=== PATIENT | male | born 1975 | race Caucasian/White ===

== ENCOUNTER 2016-09-05 15:12 | Inpatient (IN) ==
[2016-09-07 05:40] LABS: Basophils # 0.1 K/mcL (0.0-0.2); Basophils % 0.9 %; Eosinophils # 0.5 K/mcL (0.0-0.6); Hematocrit 43.1 % (37.5-50.1); Hemoglobin 15.3 g/dL (12.9-16.9); Immature Granulocytes % 0.3 % (0-4); Lymphocytes # 2.7 K/mcL (0.6-4.6); Lymphocytes % 21.5 %; Mean Corpuscular HGB Conc 35.5 g/dL (31.6-35.5); Mean Corpuscular Hemoglobin 31.1 pg (28.0-33.3); Mean Corpuscular Volume 87.6 fL (83.0-100.0); Mean Platelet Volume 10.1 fL (9.4-12.4); Monocytes # 0.8 K/mcL (0.0-1.3); Monocytes % 6.6 %; Neutrophils # 8.3 K/mcL (1.6-8.9); Platelet Count 276 K/mcL (140-400); Red Blood Count 4.92 M/mcL (4.19-5.50); Red Cell Distribution Width 13.1 % (11.5-14.5); Segmented Neutrophils % 66.7 %
[2016-09-07 05:44] LABS: Prothrombin Time 11.1 Seconds (9.4-12.1)
[2016-09-07 05:47] LABS: Activated Partial Thrombo Time 27.3 Seconds (26.0-36.0)
[2016-09-07 05:52] LABS: BUN/Creatinine Ratio 8 (6-26); Blood Urea Nitrogen 8 mg/dL (8-26); Calcium 9.5 mg/dL (8.6-10.8); Carbon Dioxide 28 mEq/L (19-29); Chloride 102 mEq/L (98-109); Glucose 103 mg/dL (70-99); Osmolality,Calculated 287 (280-300); Sodium 139 mEq/L (136-145); eGFR For African Americans > 60 (> 60); eGFR For Non-African Americans > 60 (> 60)
[2016-09-07] MEDS: Aspirin Enteric Coated 81 MG Tablet PO SCH (09:08)
--- NOTE | 2016-09-07 14:13 | Internal Med History&Physical ---
Date of Encounter: 09/07/16 Time of Encounter: 14:10 Assessment and Plan (1) Ataxia Current visit: No Status: Acute Patient had a CVA which increases ataxia. (2) Abnormal head CT Current visit: No Status: Acute Above patient had a low density areas of change in the posterior fossa (3) History of brain cancer Current visit: No Status: Acute Was 10 years old who had a tumor was removed via craniotomy (4) Cerebellar stroke Current visit: No Status: Acute Patient had changes in the CT in the posterior fossa Internal Medicine - H&P: HPI Chief complaint: CVA Admitted From: Hospital to Hospital Transfer Plans for Post Hospital Care: Home History of present illness: Mr. España is a 41 year old male Past Med Surg Social Fam HX - Past Medical History Medical history: cancer Psychiatric history: no psych history - Past Surgical History Surgical History: arthroscopy - Social History Smoking Status: Never smoker Smokeless Tobacco Status: No Alcohol use: none Drug use: none Occupational status: disabled - Family History Mother Living Status: Still Living Hx Family Cancer: Yes (skin) Internal Medicine - H&P: Meds Aspirin [Lo-Dose Aspirin EC] 81 mg PO DAILY 09/06/16 [History] Atorvastatin Calcium [Lipitor] 20 mg PO HS 09/06/16 [History] Allergies No Known Allergies Allergy (Verified 05/30/15 22:27) All Systems PM: A 10-system review of systems was performed and is negative for pertinent findings except as documented above in the HPI. - Constitutional Vitals: Temp Pulse Resp BP Pulse Ox 98.2 F 73 16 101/63 95 09/07/16 11:44 09/07/16 12:56 09/07/16 12:56 09/07/16 12:56 09/07/16 12:56 - Head Head exam: Present: atraumatic, normocephalic - Neck Neck exam general surgery: Present: supple, trachea midline. Absent: lymphadenopathy - Respiratory Respiratory exam: Present: CTAB. Absent: accessory muscle use, rales, rhonchi, wheezes - Cardiovascular Cardiovascular exam: Present: RRR, +S1, +S2. Absent: diastolic murmur, gallop, rubs, systolic murmur Internal Med - H&P Results - Labs CBC & Chem 7: 09/07/16 05:25 09/07/16 05:25 Labs: Short CBC 07/26/17 Range/Units 05:25 WBC 12.4 H (4.3-11.1) K/mcL Hgb 15.3 (12.9-16.9) g/dL Hct 43.1 (37.5-50.1) % Plt Count 276 (140-400) K/mcL Neutrophils # 8.3 (1.6-8.9) K/mcL BMP 09/07/16 05:25 Sodium 139 Potassium 4.0 Chloride 102 Carbon Dioxide 28 BUN 8 Creatinine 1.03 Glucose 103 H Calcium 9.5 Lab is stable
--- NOTE | 2016-09-07 16:03 | Physcial Medicine-Consult Note ---
Date of Encounter: 09/07/16 Time of Encounter: 16:00 Physical Medicine - AP (1) Cerebellar stroke Status: Acute Assessment and plan: 1. Mr. España will continue with intensive PT/OT/TR to address his continued ataxic gait, transfers, safety and ADLs. MAGALIE 09/14/16. Plan for patient to return home with supervision. Code(s): I63.9 - Cerebral infarction, unspecified SNOMED Code(s): [id number] Physical Medicine - HPI - Data of Consult Consult date: 09/07/16 Requesting Physician: Richie Sibley DO Primary Care Provider: PCP NO - Consult Narrative Reason for consult: CVA History of present illness: Mr. 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 Patient presented to an OSH with complaints of weakness in his legs. Patient was found to have sustained left cerebellar and right midbrain stroke. Patient was transferred to [facility]. He was stabilized and transferred for inpatient rehabilitation. CC: Richie Sibley DO Past Med Surg Social Fam HX - Past Medical History Medical history: cancer Psychiatric history: no psych history - Past Surgical History Surgical History: arthroscopy - Social History Smoking Status: Never smoker Smokeless Tobacco Status: No Alcohol use: none Drug use: none - Family History Mother Living Status: Still Living Hx Family Cancer: Yes (skin) Medications and Allergies Aspirin [Lo-Dose Aspirin EC] 81 mg PO DAILY 09/06/16 [History] Atorvastatin Calcium [Lipitor] 20 mg PO HS 09/06/16 [History] Allergies No Known Allergies Allergy (Verified 05/30/15 22:27) - Constitutional Constitutional: Absent: anorexia, chills - Cardiovascular Cardiovascular: Present: diaphoresis. Absent: chest pain - Respiratory Respiratory: Absent: dyspnea - Gastrointestinal Gastrointestinal: Absent: abdominal pain, change in bowel habits, constipation - Musculoskeletal Musculoskeletal: Present: abnormal gait - Neurological Neurological: Present: disequilibrium. Absent: dizziness Physical Medicine - Exam - Constitutional Vitals: Temp Pulse Resp BP Pulse Ox 98.2 F 73 16 101/63 95 09/07/16 11:44 09/07/16 12:56 09/07/16 12:56 09/07/16 12:56 09/07/16 12:56 - Head Head exam: Present: atraumatic, normal inspection Additional comments: Cranial nerves II-XII intact. No facial droop. - Respiratory Respiratory exam: Present: CTAB - Cardiovascular Cardiovascular exam: Present: RRR - GI/Abdominal GI/Abdominal exam: Present: normal bowel sounds, soft. Absent: tenderness - Extremities Exam Extremities exam: Present: normal inspection. Absent: calf tenderness Additional comments: Motor strength is 5/5 in the bilateral upper and lower limbs. Physical Medicine - Results - Labs CBC & Chem 7: 09/07/16 05:25 09/07/16 05:25 Labs: Short CBC 09/07/16 Range/Units 05:25 WBC 12.4 H (4.3-11.1) K/mcL Hgb 15.3 (12.9-16.9) g/dL Hct 43.1 (37.5-50.1) % Plt Count 276 (140-400) K/mcL Neutrophils # 8.3 (1.6-8.9) K/mcL BMP 09/07/16 05:25 Sodium 139 Potassium 4.0 Chloride 102 Carbon Dioxide 28 BUN 8 Creatinine 1.03 Glucose 103 H Calcium 9.5 Consult Discharge Plan - Plan Referrals: NO,PCP [Primary Care Provider] -
[2016-09-08] MEDS: Aspirin Enteric Coated 81 MG Tablet PO SCH (08:33)
--- NOTE | 2016-09-08 15:32 | Internal Med Progress Note ---
Date of Encounter: 09/08/16 Time of Encounter: 15:30 - Assessment and plan (1) Ataxia Current Visit: No Status: Acute Assessment and plan: He is working on the ataxia that which the stroke is affected his gait (2) Abnormal head CT Current Visit: No Status: Acute Assessment and plan: See the CT (3) History of brain cancer Current Visit: No Status: Acute Assessment and plan: I history to young age. And apparently has not had a recurrence (4) Cerebellar stroke Current Visit: No Status: Acute Assessment and plan: Well this last stroke was cerebellar in nature ischemic type CVA. - Time Spent With Patient less than 15 minutes - Subjective Interval history: Kamlesh is working with PT OT TR. And ambulating length of the pelayo along - Constitutional Vitals: Temp Pulse Resp BP Pulse Ox 97.7 F 70 18 103/69 94 09/08/16 07:08 09/08/16 07:08 09/08/16 07:08 09/08/16 07:08 09/08/16 07:08 - Head Head exam: Present: atraumatic, normal inspection, normocephalic - Neck Neck exam general surgery: Present: supple, trachea midline. Absent: lymphadenopathy - Respiratory Respiratory exam: Present: CTAB. Absent: accessory muscle use, rales, rhonchi, wheezes - Cardiovascular Cardiovascular exam: Present: RRR, +S1, +S2. Absent: diastolic murmur, gallop, rubs, systolic murmur Internal Medicine: Result - Labs CBC & Chem 7: 09/07/16 05:25 09/07/16 05:25 Labs: Lab is stable - ABG Interpretation ABG results: PT/INR, D-dimer PT 11.1 Seconds (9.4-12.1) 09/07/16 05:25 - VTE Documentation of Mechanical Device: Graduated compression elastic hosiery Consult Discharge Plan - Plan Referrals: NO,PCP [Primary Care Provider] -
[2016-09-09] MEDS: Aspirin Enteric Coated 81 MG Tablet PO SCH (08:06)
--- NOTE | 2016-09-09 15:12 | Internal Med Progress Note ---
Date of Encounter: 09/09/16 Time of Encounter: 15:10 - Assessment and plan (1) Ataxia Current Visit: No Status: Acute Assessment and plan: Patient's working with PT for the ataxia. He is pleasant and smiling dressed and feels pretty good no complaints (2) Abnormal head CT Current Visit: No Status: Acute Assessment and plan: Please see the CT (3) History of brain cancer Current Visit: No Status: Acute Assessment and plan: This was at 10 years of age (4) Cerebellar stroke Current Visit: No Status: Acute Assessment and plan: This was most recent episode - Time Spent With Patient less than 15 minutes - Subjective Interval history: Kamlesh is no complaints he is working with therapy and improvement in his ambulation. - Constitutional Vitals: Temp Pulse Resp BP Pulse Ox 98.1 F 74 14 107/75 94 09/09/16 08:00 09/09/16 08:00 09/09/16 08:00 09/09/16 08:00 09/09/16 08:00 - Head Head exam: Present: atraumatic, normocephalic - Neck Neck exam general surgery: Present: supple, trachea midline. Absent: lymphadenopathy - Respiratory Respiratory exam: Present: CTAB. Absent: accessory muscle use, rales, rhonchi, wheezes - Cardiovascular Cardiovascular exam: Present: RRR, +S1, +S2. Absent: diastolic murmur, gallop, rubs, systolic murmur Internal Medicine: Result - Labs CBC & Chem 7: 09/07/16 05:25 09/07/16 05:25 Labs: Lab is good - ABG Interpretation ABG results: PT/INR, D-dimer PT 11.1 Seconds (9.4-12.1) 09/07/16 05:25 - VTE Documentation of Mechanical Device: Graduated compression elastic hosiery Consult Discharge Plan - Plan Referrals: NONE,PCP [Primary Care Provider] -
[2016-09-10] MEDS: Aspirin Enteric Coated 81 MG Tablet PO SCH (08:54)
--- NOTE | 2016-09-10 11:21 | Internal Med Progress Note ---
Date of Encounter: 09/10/16 Time of Encounter: 11:19 - Assessment and plan (1) Ataxia Current Visit: No Status: Acute Assessment and plan: There working on this through therapy (2) Abnormal head CT Current Visit: No Status: Acute Assessment and plan: CC T (3) History of brain cancer Current Visit: No Status: Acute Assessment and plan: It 10 years of age he had a craniotomy (4) Cerebellar stroke Current Visit: No Status: Acute Assessment and plan: CCP - Time Spent With Patient less than 15 minutes - Subjective Interval history: El does not have any complaints but the nurse reports of difficult urination - Constitutional Vitals: Temp Pulse Resp BP Pulse Ox 98.1 F 74 18 109/70 95 09/10/16 07:23 09/10/16 07:23 09/10/16 07:23 09/10/16 07:23 09/10/16 07:23 - Head Head exam: Present: atraumatic, normal inspection, normocephalic - Neck Neck exam general surgery: Present: supple, trachea midline. Absent: lymphadenopathy - Respiratory Respiratory exam: Present: CTAB. Absent: accessory muscle use, rales, rhonchi, wheezes - Cardiovascular Cardiovascular exam: Present: RRR, +S1, +S2. Absent: diastolic murmur, gallop, rubs, systolic murmur Internal Medicine: Result - Labs CBC & Chem 7: 09/07/16 05:25 09/07/16 05:25 Labs: Lab is stable - ABG Interpretation ABG results: PT/INR, D-dimer PT 11.1 Seconds (9.4-12.1) 09/07/16 05:25 - VTE Documentation of Mechanical Device: Graduated compression elastic hosiery Consult Discharge Plan - Plan Referrals: NONE,PCP [Primary Care Provider] -
[2016-09-11] MEDS: Aspirin Enteric Coated 81 MG Tablet PO SCH (09:48)
--- NOTE | 2016-09-11 11:14 | Internal Med Progress Note ---
Date of Encounter: 09/11/16 Time of Encounter: 11:12 (Doing very well complaints) - Assessment and plan (1) Ataxia Current Visit: No Status: Acute Assessment and plan: Ataxia is the reason for the admission. (2) Abnormal head CT Current Visit: No Status: Acute Assessment and plan: History of brain tumor and craniotomy at age 10 (3) History of brain cancer Current Visit: No Status: Acute Assessment and plan: See above (4) Cerebellar stroke Current Visit: No Status: Acute Assessment and plan: Cause of the ataxia - Time Spent With Patient less than 15 minutes - Subjective Interval history: El does not have any complaints but the nurse reports of difficult urination - Constitutional Vitals: Temp Pulse Resp BP Pulse Ox 97.9 F 70 18 111/69 95 09/11/16 07:41 09/11/16 07:41 09/11/16 07:41 09/11/16 07:41 09/11/16 07:41 General appearance: Present: pleasant, no acute distress - Head Head exam: Present: atraumatic, normocephalic - Neck Neck exam general surgery: Present: supple, trachea midline. Absent: lymphadenopathy - Respiratory Respiratory exam: Present: CTAB. Absent: accessory muscle use, rales, rhonchi, wheezes - Cardiovascular Cardiovascular exam: Present: RRR, +S1, +S2. Absent: diastolic murmur, gallop, rubs, systolic murmur - Neurological Exam Neurological exam: Present: abnormal gait, CN II-XII intact, oriented X3, no focal deficits. Absent: pronater drift, facial droop, speech deficit Additional comments: She is working on gait disturbance which is his main symptom Internal Medicine: Result - Labs CBC & Chem 7: 09/07/16 05:25 09/07/16 05:25 Labs: Labs stable - ABG Interpretation ABG results: PT/INR, D-dimer PT 11.1 Seconds (9.4-12.1) 09/07/16 05:25 - VTE Documentation of Mechanical Device: Graduated compression elastic hosiery Consult Discharge Plan - Plan Referrals: NONE,PCP [Primary Care Provider] -
[2016-09-12 06:00] LABS: Basophils # 0.1 K/mcL (0.0-0.2); Basophils % 0.7 %; Eosinophils # 0.4 K/mcL (0.0-0.6); Hematocrit 43.8 % (37.5-50.1); Hemoglobin 15.4 g/dL (12.9-16.9); Immature Granulocytes % 0.6 % (0-4); Lymphocytes # 2.3 K/mcL (0.6-4.6); Lymphocytes % 19.7 %; Mean Corpuscular HGB Conc 35.2 g/dL (31.6-35.5); Mean Corpuscular Hemoglobin 31.2 pg (28.0-33.3); Mean Corpuscular Volume 88.8 fL (83.0-100.0); Mean Platelet Volume 10.4 fL (9.4-12.4); Monocytes # 0.8 K/mcL (0.0-1.3); Monocytes % 7.1 %; Neutrophils # 8.2 K/mcL (1.6-8.9); Platelet Count 264 K/mcL (140-400); Red Blood Count 4.93 M/mcL (4.19-5.50); Red Cell Distribution Width 13.2 % (11.5-14.5); Segmented Neutrophils % 68.9 %
[2016-09-12 06:15] LABS: BUN/Creatinine Ratio 13 (6-26); Blood Urea Nitrogen 14 mg/dL (8-26); Calcium 9.6 mg/dL (8.6-10.8); Carbon Dioxide 26 mEq/L (19-29); Chloride 104 mEq/L (98-109); Glucose 93 mg/dL (70-99); Osmolality,Calculated 286 (280-300); Potassium 4.8 mEq/L (3.5-4.5); Sodium 138 mEq/L (136-145); eGFR For African Americans > 60 (> 60); eGFR For Non-African Americans > 60 (> 60)
[2016-09-12] MEDS: Aspirin Enteric Coated 81 MG Tablet PO SCH (08:53)
--- NOTE | 2016-09-12 10:00 | Internal Med Progress Note ---
Date of Encounter: 09/12/16 Time of Encounter: 09:57 - Assessment and plan (1) Cerebrovascular accident (CVA) due to thrombosis of left cerebellar artery Current Visit: Yes Status: Acute Assessment and plan: 41-year-old male with history of left cerebellar infarct and right mid brain stroke has ataxia symptoms and tends to fall to the left side. He is showing improvement. His plan for discharge is in 2 days. He denies any chest pain, palpitations, irregular heartbeat, new unilateral focal deficit, etc. (2) Ataxia Current Visit: Yes Status: Acute Assessment and plan: Difficulties with ambulation, using a walker and tends to drift or fall to the left side (3) History of brain cancer Current Visit: No Status: Chronic Assessment and plan: History of a brain tumor removal when he was 8 years old without significant sequela (4) Cerebellar stroke Current Visit: Yes Status: Acute Assessment and plan: The etiology is cryptogenic according to the records from [facility]. The patient has an implantable loop recorder to see if there is a cardiac dysrhythmia putting him at further risk of another CVA - Subjective Interval history: Patient thinks he is doing well. He looks forward to going home in 2 days. He is using the walker, but still needs assistance for safety reasons. He still drifts to the left side. He denies any chest pain, palpitation, irregular heartbeat or new unilateral focal deficit. His landlord has put in a ramp for access to his trailer. - Constitutional Vitals: Temp Pulse Resp BP Pulse Ox 97.9 F 64 12 96/64 95 09/12/16 07:32 09/12/16 07:32 09/12/16 07:32 09/12/16 07:32 09/12/16 07:32 General appearance: Present: A&O X 3, pleasant, no acute distress - Eye Eye exam: Absent: EOMI (He does appear to have disconjugate gaze looking to the extreme right or left but he denies any double vision.) Pupils: Present: unequal (Right eye is dilated compared to the left.) - Respiratory Respiratory exam: Present: CTAB - Cardiovascular Cardiovascular exam: Present: RRR, +S1, +S2. Absent: systolic murmur - GI/Abdominal GI/Abdominal exam: Present: soft. Absent: mass, tenderness - Extremities Exam Extremities exam: Absent: calf tenderness, pedal edema - Neurological Exam Additional comments: Right pupil dilated compared to the left. Slightly disconjugate gaze but no double vision noted by patient. Upper body strength is equal bilaterally. No deficits. Lower body strength appears equal bilaterally. Able stand on toes and heels. Able to squat and stand. Gait is abnormal though with drifting to the left side and nearly fell even while using his walker. Internal Medicine: Result - Labs CBC & Chem 7: 09/12/16 05:40 09/12/16 05:40 Labs: Short CBC 09/12/16 Range/Units 05:40 WBC 11.9 H (4.3-11.1) K/mcL Hgb 15.4 (12.9-16.9) g/dL Hct 43.8 (37.5-50.1) % Plt Count 264 (140-400) K/mcL Neutrophils # 8.2 (1.6-8.9) K/mcL BMP 09/12/16 05:40 Sodium 138 Potassium 4.8 H Chloride 104 Carbon Dioxide 26 BUN 14 Creatinine 1.08 Glucose 93 Calcium 9.6 His labs have been reviewed. Minimal elevated potassium. He does not take any medication that would raise this. Renal function is normal. White count is slightly elevated but I doubt clinically significant. - ABG Interpretation ABG results: PT/INR, D-dimer PT 11.1 Seconds (9.4-12.1) 09/07/16 05:25 - VTE Documentation of Mechanical Device: Graduated compression elastic hosiery Consult Discharge Plan - Plan Referrals: NONE,PCP [Primary Care Provider] -
[2016-09-13] MEDS: Aspirin Enteric Coated 81 MG Tablet PO SCH (09:29)
--- NOTE | 2016-09-13 16:36 | Internal Med Progress Note ---
Date of Encounter: 09/13/16 Time of Encounter: 16:33 - Assessment and plan (1) Cerebrovascular accident (CVA) due to thrombosis of left cerebellar artery Current Visit: Yes Status: Acute Assessment and plan: Status post cerebellar and mid brain infarction of cryptogenic etiology. He has residual balance problems and gait intermittently. He denies any acute symptoms otherwise. Plan for discharge tomorrow. He has been advancing nicely with PT and OT. 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 (2) Ataxia Current Visit: Yes Status: Acute (3) History of brain cancer Current Visit: No Status: Chronic (4) Cerebellar stroke Current Visit: Yes Status: Acute - Subjective Interval history: Patient denies any acute symptoms of chest pain, palpitations, irregular heartbeat, or new unilateral focal deficit. His only complaint is that he has difficulties walking and losing his balance. He is using a walker. 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 He told me that he drives to [place], [place] and other places independently. - Constitutional Vitals: Temp Pulse Resp BP Pulse Ox 97.7 F 56 16 103/56 95 09/13/16 07:33 09/13/16 07:33 09/13/16 07:33 09/13/16 07:33 09/13/16 07:33 General appearance: Present: A&O X 3, pleasant, no acute distress - Respiratory Respiratory exam: Present: CTAB - Cardiovascular Cardiovascular exam: Present: RRR, +S1, +S2. Absent: systolic murmur - GI/Abdominal GI/Abdominal exam: Present: soft. Absent: tenderness - Extremities Exam Extremities exam: Absent: calf tenderness, pedal edema - Neurological Exam Neurological exam: Present: oriented X3, strengths equal and symetr throughout Additional comments: I did not get him up to walk to check his balance today. Internal Medicine: Result - Labs CBC & Chem 7: 09/12/16 05:40 09/12/16 05:40 - ABG Interpretation ABG results: PT/INR, D-dimer PT 11.1 Seconds (9.4-12.1) 09/07/16 05:25 - VTE Documentation of Mechanical Device: Graduated compression elastic hosiery Consult Discharge Plan - Plan Referrals: NONE,PCP [Primary Care Provider] -
--- NOTE | 2016-09-13 16:38 | Discharge Summary ---
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 He was evaluated at [facility] and confirm the diagnosis. Workup was unrevealing regarding etiology of the CVA. He does have an implanted monitor to rule out cardiac dysrhythmia. [facility] and has advanced nicely with PT and OT. He is now able to be independent with use of his walker. 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 He will be discharged on baby aspirin and statin. He does not have a PCP and will be seeing Mery Carlson CNP in follow-up (2) Ataxia Priority: Secondary Status: Acute (3) History of brain cancer Priority: Secondary Status: Chronic Comments: History of brain tumor with excision at age 8. Apparently he has not had any sequela from this except we have found that he is illiterate (4) Cerebellar stroke Priority: Secondary Status: Acute - Discharge Medications Prescriptions: Aspirin [Lo-Dose Aspirin EC] 81 mg PO DAILY #30 Atorvastatin Calcium [Lipitor] 20 mg PO HS #30 Home Medications: Aspirin [Lo-Dose Aspirin EC] 81 mg PO DAILY #30 09/13/16 [Rx] Atorvastatin Calcium [Lipitor] 20 mg PO HS #30 09/13/16 [Rx] Allergies/Adverse Reactions: Allergies No Known Allergies Allergy (Verified 05/30/15 22:27) Procedures/tests Complete & Pending: Laboratory Last Values WBC 11.9 K/mcL (4.3-11.1) H 09/12/16 05:40 RBC 4.93 M/mcL (4.19-5.50) 09/12/16 05:40 Hgb 15.4 g/dL (12.9-16.9) 09/12/16 05:40 Hct 43.8 % (37.5-50.1) 09/12/16 05:40 MCV 88.8 fL (83.0-100.0) 09/12/16 05:40 MCH 31.2 pg (28.0-33.3) 09/12/16 05:40 MCHC 35.2 g/dL (31.6-35.5) 09/12/16 05:40 RDW 13.2 % (11.5-14.5) 09/12/16 05:40 Plt Count 264 K/mcL (140-400) 09/12/16 05:40 MPV 10.4 fL (9.4-12.4) 09/12/16 05:40 Immature Gran % 0.6 % (0-4) 09/12/16 05:40 Seg Neutrophils % 68.9 % 09/12/16 05:40 Lymphocytes % 19.7 % 09/12/16 05:40 Monocytes % 7.1 % 09/12/16 05:40 Eosinophils % 3.0 % 09/12/16 05:40 Basophils % 0.7 % 09/12/16 05:40 Neutrophils # 8.2 K/mcL (1.6-8.9) 09/12/16 05:40 Lymphocytes # 2.3 K/mcL (0.6-4.6) 09/12/16 05:40 Monocytes # 0.8 K/mcL (0.0-1.3) 09/12/16 05:40 Eosinophils # 0.4 K/mcL (0.0-0.6) 09/12/16 05:40 Basophils # 0.1 K/mcL (0.0-0.2) 09/12/16 05:40 PT 11.1 Seconds (9.4-12.1) 09/07/16 05:25 INR 1.0 09/07/16 05:25 APTT 30.2 Seconds (26.0-36.0) 09/12/16 05:40 Sodium 138 mEq/L (136-145) 09/12/16 05:40 Potassium 4.8 mEq/L (3.5-4.5) H 09/12/16 05:40 Chloride 104 mEq/L (98-109) 09/12/16 05:40 Carbon Dioxide 26 mEq/L (19-29) 09/12/16 05:40 BUN 14 mg/dL (8-26) 09/12/16 05:40 Creatinine 1.08 mg/dL (0.72-1.25) 09/12/16 05:40 Est GFR ( Amer) > 60 (> 60) 09/12/16 05:40 Est GFR (Non-Af Amer) > 60 (> 60) 09/12/16 05:40 BUN/Creatinine Ratio 13 (6-26) 09/12/16 05:40 Glucose 93 mg/dL (70-99) 09/12/16 05:40 Calculated Osmolality 286 (280-300) 09/12/16 05:40 Calcium 9.6 mg/dL (8.6-10.8) 09/12/16 05:40 Date of admission: 09/06/16 18:12 Primary care physician: PCP NONE Consults: 09/06/16 18:24 Consult to Occupational Therapy [CONS] Routine Comment: Evaluate, develop and implement POC Reason for Consult: CVA Consult to Physical Therapy [CONS] Routine Comment: Evaluate, develop and implement POC Reason for Consult: CVA Consult to Recreational Therapy [CONS] Routine Comment: Evaluate, develop and implement POC 09/13/16 15:19 Consult to Occupational Therapy [CONS] Routine Comment: driving eval Reason for Consult: driving eval Discharging clinician: Richie Villa Anticipated date of discharge: 09/14/16 - Patient Status Disposition: Home, Self-Care Condition: Good Functional capacity at discharge: uses cane/walker Overall status at discharge: patient is not back to baseline - Discharge Instructions Follow Up With: NEUROLOGY, ELVIS MAJOR JR, MD [Other] - 10/10/16 10:45 am [facility], [facility]ARDIOLOGY [facility] [Other] - 10/10/16 1:45 pm (Pacemaker Follow Up) Mery Carlson CNP [Advanced Practice Nurse] - 09/29/16 2:00 pm (September 29 at 2:00 Mery Carlson [address] [place] [address] BRING PHOTO ID AND INSURANCE CARD) Additional Instructions: Outpatient physical therapy - Diet and Activity Activity: ambulate only with your walker, as per physical therapy Diet: regular diet Interval History: He has no acute symptoms currently. He denies any cardiac, respiratory, GI or symptoms. He is doing well with his therapies. 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 I ambulated him to and from therapy with his walker and is doing much better than just 2 days ago. Examination is basically normal as below except for the ataxia history. He will be discharged today Hospital course: Mr. España is a 41 year old male with previous benign brain tumor removed at age 8 is admitted to our rehabilitation unit with a history of cerebellar and midbrain CVA causing ataxia. He has done well with therapy in our facility with PT and OT and recreational therapy. He is now advanced the point where it is safe for him to be sent home. He passed his drug simulation test. - Time Spent with Patient Total time spent providing and/or coordinating discharge services: - Constitutional Vitals: Temp Pulse Resp BP Pulse Ox 97.7 F 56 16 103/56 95 09/13/16 07:33 09/13/16 07:33 09/13/16 07:33 09/13/16 07:33 09/13/16 07:33 General appearance: Present: A&O X 3, pleasant, no acute distress - Respiratory Respiratory exam: Present: CTAB - Cardiovascular Cardiovascular exam: Present: RRR, +S1, +S2. Absent: systolic murmur - Extremities Exam Extremities exam: Present: full ROM. Absent: calf tenderness, pedal edema - Neurological Exam Additional comments: He has a slightly disconjugate gaze but no history of double vision. (I suspect alternating amblyopia). Muscle strength examination in all extremities is normal. He is ambulate with a walker slowly and deliberately but no drifting or falling noted today. - VTE Documentation of Mechanical Device: Graduated compression elastic hosiery
[2016-09-14 07:10] VITALS: BP 101/69
[2016-09-14] MEDS: Aspirin Enteric Coated 81 MG Tablet PO SCH (08:36)
== END 2016-09-14 12:45 | disposition home or self-care (01) | DRG 57 ==
LOC: INPGRE 09-06 18:12
PROVIDERS: ADMIT Internal Medicine; ATTEND Internal Medicine